=== PATIENT | male | born 1960 | race Caucasian/White ===

== ENCOUNTER 2016-10-09 14:13 | Day surgery (SDC) | payer OTHER ==
[~2016-10-09] VITALS: Ht 166.4 cm; Wt 89.2 kg
[~2016-10-09 14:13] MED LIST: GLYB5TAB3 PO; METF500T4 PO
[2016-10-09 14:36] VITALS: Ht 166.4 cm; Wt 89.2 kg
[2016-10-09] MEDS ORDERED: glimepiride PO (14:39)
[2016-10-09] MEDS ORDERED: januvia PO (14:39)
[2016-10-09] MEDS ORDERED: cholesterol med PO (14:39)
[2016-10-09] MEDS ORDERED: water pill PO (14:39)
[2016-10-09] MEDS ORDERED: metformin PO (14:39)
[2016-10-09] MEDS ORDERED: CEFAZOLIN 1 GM/50 ML (PMX) 50 ML IVPB ONE (14:54)
[2016-10-09 14:58] VITALS: BP 133/65; PULSE 75; RESP 18
[2016-10-09] MEDS ORDERED: LIDOCAINE 4% SOLUTION 50 ML BTL ONE (15:00)
[2016-10-09] MEDS ORDERED: FENTAnyl 50 MCG/ML VIAL ONE (15:18)
[2016-10-09] MEDS ORDERED: MIDAZOLAM 1 MG/ML 2 ML INJ ONE ×2 (15:18)
--- NOTE | 2016-10-09 15:21 | OPPN ---
Date/Time of Note Date/Time of Note DATE: 10/09/16 TIME: 15:17 Operative Report Preoperative Diagnosis F/U DUODENAL ULCER BLEED ,ESOPHAGEAL VARICES Postoperative Diagnosis DUODENAL ULCER HEALED DISTAL ESOPHAGEAL VARICES SCLEROSED GRADE 1 NOT BLEEDING ,GRADE 1 GASTRIC VARICES NOT BLEEDING PT HAS DEVELOPING GRADE 2 MID ESOPHAGEAL VARICES Operation/Procedure Performed EGD Provider: ELIDA MENDENHALL MD Anesthesia Type: moderate sedation (VERSED 3MG/FENTANYL 75MCG) Estimated blood loss: none Transfusion Required: no Specimen: none Grafts/Implants: none Complications: no ELIDA MENDENHALL MD Oct 09, 2016 15:21
[2016-10-09 16:00] VITALS: BP 129/71; RESP 20
--- NOTE | 2016-10-09 17:42 | GILP ---
DATE OF PROCEDURE: 10/09/2016 PREOPERATIVE DIAGNOSIS: The patient was referred for follow-up study. History of duodenal ulcer, GI bleed, plus esophageal varices post banding. Patient has improved and he has not abusing any alcohol. His ascites has improved. PROCEDURE PERFORMED: EGD. POSTOPERATIVE DIAGNOSIS: Mid esophagus varices grade 2, distal esophageal varices sclerosed due to previous banding, grade 1 gastroesophageal varices at the GE junction and fundal area. GB 1 varices, but not bleeding. No stigmata of recent bleed. The rest of the stomach is normal. Duodenum normal. DESCRIPTION OF PROCEDURE: The patient was put in left lateral decubitus after obtaining informed consent. She gargled xylocaine and then 3 mg IV Versed and 75 mcg of fentanyl were given. Monitor on oximetry, EKG, blood pressure. Very carefully advanced Olympus video upper endoscope into the esophagus, stomach, and duodenum without any difficulty. Examination of the esophagus in its entire length showed grade 2 varices in the mid esophagus not bleeding, distal esophageal varices as well sclerosed. GE junction, there are very few small varices extending in towards the fundus grade 1, I would say, not bleeding, noticed recent stigmata of bleed or any red spots. Gastropathy has improved. Entire stomach was examined including by retroflexion and antegrade examination. Duodenal bulb easily, duodenal ulcer is healed, no abnormality, no bleeding in the duodenum, first and second parts also normal. Duodenal bulb ulcer is healed scope was withdrawn. Patient had no complications. PLAN: Will be to observe, continue the present therapy. I advised him not to take any alcohol, aspirin or NSAIDs like medications. Continue Protonix, continue Inderal, and he needs to have follow up with the primary MD. In case he were to show signs of bleeding, consider TIPS procedure as outpatient. He will follow up once in my office. Dictated By: Javid Monterroso MD /[email or web address] /Document#: [id number]
== END 2016-10-09 16:40 | disposition home or self-care (01) ==
LOC: GIL 14:13
PROVIDERS: ATTEND Internal Medicine
DX: I85.00 Esophageal varices without bleeding (principal); E11.9 Type 2 diabetes mellitus without complications; E78.5 Hyperlipidemia, unspecified
CPT/HCPCS: 43255; 82962; J0690; J2250; J3010; Z7610

== ENCOUNTER 2017-06-11 10:39 | Day surgery (SDC) | END 2017-06-11 14:47 | disposition home or self-care (01) ==

== ENCOUNTER 2017-11-05 11:46 | Day surgery (SDC) | END 2017-11-05 17:04 | disposition home or self-care (01) ==